=== PATIENT | female | born 1935 | race Caucasian/White ===

== ENCOUNTER 2022-12-15 08:42 | Inpatient (IN) | payer OTHER, MEDICAID ==
[~2022-12-15] VITALS: Ht 167.6 cm; Wt 64.9 kg
[2022-12-15] MEDS ORDERED: SODIUM CHLORIDE 0.9% 1,000 ML IV ONE ×2 (08:45→11:30)
[2022-12-15 09:44] LABS: Basophils # (auto) 0.1 10 ^3/uL (0-0.2); Basophils % (auto) 0.7 % (0.0-2.0); Eosinophils # (auto) 0 10 ^3/uL (0-0.8); Eosinophils % (auto) 0.2 % (0.0-7.0); Hematocrit 44.4 % (36.0-46.0); Hemoglobin 14.9 g/dL (12.2-16.2); Lymphocytes # (auto) 0.8 10 ^3/uL (0.4-5.4); Lymphocytes % (auto) 6.3 % (10.0-50.0); Mean Corpuscular Hemoglobin 27.9 pg (28.0-32.0); Mean Corpuscular Hgb Conc. 33.6 g/dL (32.0-36.0); Mean Corpuscular Volume 82.9 fL (80.0-100.0); Monocytes # (auto) 1.1 10 ^3/uL (0-1.3); Monocytes % (auto) 8.7 % (0.0-12.0); Neutrophils # (auto) 10.5 10 ^3/uL (1.6-8.6); Neutrophils % (auto) 84.1 % (37.0-80.0); Nucleated Red Blood Cells % 0.1 %; Red Blood Cells 5.35 10^6/uL (4.0-5.20); White Blood Cell 12.5 10^3/uL (4.4-10.8)
[2022-12-15 10:14] LABS: INR 1.03 (0.9-1.15); Partial Thromboplastin Time 27.7 SEC (24.5-34.5); Prothrombin Time 10.8 sec (9.3-11.8)
[2022-12-15] MEDS ORDERED: cefTRIAXone 1GM/50ML D5W 50 ML IV ONE (10:15)
[2022-12-15] MEDS ORDERED: LABETALOL HCL 5 MG/ML 4ML SYRINGE IV ONE (10:15)
[2022-12-15 10:20] VITALS: PULSE 93; RESP 22; O2SAT 93
[2022-12-15 10:23] LABS: Calcium 9.6 mg/dL (8.5-10.1); Potassium 4.1 mmol/L (3.5-5.1)
[2022-12-15] MEDS: SODIUM CHLORIDE 0.9% 1,000 ML IV ONE ×2 (10:26→10:42)
[2022-12-15 10:29] LABS: Albumin 4.3 g/dL (3.4-5.0); BUN/Creatinine Ratio 35.5 (10.0-20.0)
[2022-12-15] MEDS ORDERED: MORPHINE SULFATE INJ 2 MG/ml SYRG IV PRN (11:30)
[2022-12-15] MEDS ORDERED: NITROGLYCERIN 0.4 MG SL TAB SL PRN (11:30)
[2022-12-15] MEDS ORDERED: ASPirin 81 mg TAB PO ONE (11:30)
[2022-12-15] MEDS ORDERED: hydrALAZINE HCL 20 MG/ML VL IV ONE (12:00)
[2022-12-15] MEDS ORDERED: ONDANSETRON HCL 4 MG/2 ML VIAL IV PRN (14:45)
[2022-12-15] MEDS ORDERED: hydrALAZINE HCL 20 MG/ML VL IV PRN (15:30)
[2022-12-15] MEDS: hydrALAZINE HCL 20 MG/ML VL IV PRN (17:10)
[2022-12-15 18:24] LABS: Urine Bacteria NONE SEEN /hpf (None Seen); Urine Blood Negative /uL (Negative); Urine Clarity Clear (Clear); Urine Color Yellow (Yellow); Urine Hyaline Cast FEW /lpf (0 - 2); Urine Protein, UAD 2+ (Negative); Urine Specific Gravity 1.019 (1.001-1.035); Urine Urobilinogen Normal (Negative); Urine WBC 20 /hpf (0 - 5); Urine pH 5.5 (5.0-8.0)
[2022-12-15 19:28] VITALS: PULSE 96; RESP 24; O2SAT 96
[2022-12-16] MEDS: LORazepam 2MG/ML-1ML VIAL IV PRN ×3 (02:02→20:27)
[2022-12-16 06:58] LABS: INR 1.07 (0.9-1.15); Partial Thromboplastin Time 25.2 SEC (24.5-34.5); Prothrombin Time 11.2 sec (9.3-11.8)
[2022-12-16 07:03] LABS: BUN/Creatinine Ratio 40.5 (10.0-20.0); Calcium 8.8 mg/dL (8.5-10.1); Potassium 3.6 mmol/L (3.5-5.1)
[2022-12-16 07:08] LABS: Basophils # (auto) 0.1 10 ^3/uL (0-0.2); Basophils % (auto) 0.7 % (0.0-2.0); Eosinophils # (auto) 0.1 10 ^3/uL (0-0.8); Eosinophils % (auto) 0.5 % (0.0-7.0); Hematocrit 40.3 % (36.0-46.0); Hemoglobin 13.6 g/dL (12.2-16.2); Lymphocytes # (auto) 1.4 10 ^3/uL (0.4-5.4); Lymphocytes % (auto) 12.6 % (10.0-50.0); Mean Corpuscular Hemoglobin 29.4 pg (28.0-32.0); Mean Corpuscular Hgb Conc. 33.6 g/dL (32.0-36.0); Mean Corpuscular Volume 87.4 fL (80.0-100.0); Monocytes # (auto) 1.3 10 ^3/uL (0-1.3); Monocytes % (auto) 12.1 % (0.0-12.0); Neutrophils # (auto) 8.2 10 ^3/uL (1.6-8.6); Neutrophils % (auto) 74.1 % (37.0-80.0); Red Blood Cells 4.61 10^6/uL (4.0-5.20); Red Cell Distribution Width 16.1 % (11.8-14.3); White Blood Cell 11.1 10^3/uL (4.4-10.8)
[2022-12-16] MEDS: hydrALAZINE HCL 20 MG/ML VL IV PRN (08:13)
[2022-12-16] MEDS ORDERED: hydrALAZINE HCL 20 MG/ML VL IV PRN (09:00)
[2022-12-16 09:24] VITALS: PULSE 92; RESP 17; O2SAT 95
[2022-12-16] MEDS: cefTRIAXone 1GM/50ML D5W 50 ML IV SCH (09:29)
[2022-12-16] MEDS: ASPirin 81 mg TAB PO SCH (10:00)
[2022-12-16 19:30] VITALS: PULSE 89; RESP 23; O2SAT 94
[2022-12-17 05:20] LABS: Basophils # (auto) 0.1 10 ^3/uL (0-0.2); Basophils % (auto) 1.1 % (0.0-2.0); Eosinophils # (auto) 0.2 10 ^3/uL (0-0.8); Eosinophils % (auto) 2.6 % (0.0-7.0); Hematocrit 38.2 % (36.0-46.0); Hemoglobin 12.7 g/dL (12.2-16.2); Lymphocytes # (auto) 1.7 10 ^3/uL (0.4-5.4); Lymphocytes % (auto) 18.2 % (10.0-50.0); Mean Corpuscular Hemoglobin 28.5 pg (28.0-32.0); Mean Corpuscular Hgb Conc. 33.3 g/dL (32.0-36.0); Mean Corpuscular Volume 85.7 fL (80.0-100.0); Monocytes # (auto) 1.1 10 ^3/uL (0-1.3); Monocytes % (auto) 11.4 % (0.0-12.0); Neutrophils # (auto) 6.3 10 ^3/uL (1.6-8.6); Neutrophils % (auto) 66.7 % (37.0-80.0); Nucleated Red Blood Cells % 0.2 %; Red Blood Cells 4.46 10^6/uL (4.0-5.20); Red Cell Distribution Width 15.7 % (11.8-14.3); White Blood Cell 9.4 10^3/uL (4.4-10.8)
[2022-12-17] MEDS ORDERED: hydrALAZINE HCL 20 MG/ML VL IV ONE (06:30)
[2022-12-17 07:20] VITALS: PULSE 73; RESP 15; O2SAT 100
[2022-12-17 07:52] LABS: Potassium 3.4 mmol/L (3.5-5.1)
[2022-12-17 08:02] LABS: BUN/Creatinine Ratio 40.2 (10.0-20.0); Calcium 8.3 mg/dL (8.5-10.1)
[2022-12-17] MEDS: cefTRIAXone 1GM/50ML D5W 50 ML IV SCH (08:46)
[2022-12-17] MEDS: LORazepam 2MG/ML-1ML VIAL IV PRN (09:05)
[2022-12-17] MEDS: ASPirin 81 mg TAB PO SCH (09:58)
[2022-12-17] MEDS ORDERED: HALOPERIDOL LACTATE 5 MG/ML INJ VIAL IM PRN (13:00)
[2022-12-17] MEDS ORDERED: POTASSIUM EFFERVESENT TAB 25 MEQ PO ONE (15:45)
[2022-12-17 19:37] VITALS: O2SAT 94
[2022-12-17] MEDS: METOPROLOL TARTRATE 25 MG TAB PO SCH (22:59)
[2022-12-18] MEDS: hydrALAZINE HCL 20 MG/ML VL IV PRN ×2 (01:16→19:31)
[2022-12-18] MEDS: LORazepam 2MG/ML-1ML VIAL IV PRN (03:43)
[2022-12-18 05:20] LABS: BUN/Creatinine Ratio 42.9 (10.0-20.0); Calcium 8.6 mg/dL (8.5-10.1); Potassium 3.5 mmol/L (3.5-5.1)
[2022-12-18 07:25] VITALS: PULSE 84; RESP 14; O2SAT 95
[2022-12-18 07:29] LABS: Basophils # (auto) 0.1 10 ^3/uL (0-0.2); Eosinophils # (auto) 0.3 10 ^3/uL (0-0.8); Eosinophils % (auto) 2.4 % (0.0-7.0); Hematocrit 37.8 % (36.0-46.0); Hemoglobin 12.6 g/dL (12.2-16.2); Lymphocytes # (auto) 1.5 10 ^3/uL (0.4-5.4); Lymphocytes % (auto) 13.3 % (10.0-50.0); Mean Corpuscular Hemoglobin 28.2 pg (28.0-32.0); Mean Corpuscular Hgb Conc. 33.5 g/dL (32.0-36.0); Mean Corpuscular Volume 84.2 fL (80.0-100.0); Monocytes # (auto) 1.2 10 ^3/uL (0-1.3); Monocytes % (auto) 10.8 % (0.0-12.0); Neutrophils # (auto) 7.9 10 ^3/uL (1.6-8.6); Neutrophils % (auto) 72.5 % (37.0-80.0); Nucleated Red Blood Cells % 0.1 %; Red Blood Cells 4.49 10^6/uL (4.0-5.20); Red Cell Distribution Width 15.5 % (11.8-14.3); White Blood Cell 10.9 10^3/uL (4.4-10.8)
[2022-12-18] MEDS: ASPirin 81 mg TAB PO SCH (09:29)
[2022-12-18] MEDS: LISINOPRIL 10 MG TAB PO SCH (09:29)
[2022-12-18] MEDS: METOPROLOL TARTRATE 25 MG TAB PO SCH ×2 (09:30→22:07)
[2022-12-18] MEDS: cefTRIAXone 1GM/50ML D5W 50 ML IV SCH (09:50)
[2022-12-18 19:30] VITALS: PULSE 91; RESP 20; O2SAT 94
[2022-12-18] MEDS ORDERED: LORazepam 2MG/ML-1ML VIAL IV PRN (21:00)
[2022-12-18] MEDS ORDERED: ATORVASTATIN 20 MG TAB PO SCH (22:00)
[2022-12-18 22:36] LABS: Cholesterol 118 mg/dL (< 200); HDL Cholesterol 61 mg/dL (40-59); LDL Cholesterol 49 mg/dL (< 100); Triglycerides 71 mg/dL (< 150)
[2022-12-18 22:43] LABS: Folate (Folic Acid) 11.81 ng/mL (5.38-24)
[2022-12-19 04:54] LABS: Basophils # (auto) 0.1 10 ^3/uL (0-0.2); Basophils % (auto) 1.1 % (0.0-2.0); Eosinophils # (auto) 0.4 10 ^3/uL (0-0.8); Eosinophils % (auto) 3.6 % (0.0-7.0); Hematocrit 36.5 % (36.0-46.0); Hemoglobin 12.3 g/dL (12.2-16.2); Lymphocytes # (auto) 1.5 10 ^3/uL (0.4-5.4); Lymphocytes % (auto) 13.3 % (10.0-50.0); Mean Corpuscular Hemoglobin 28.1 pg (28.0-32.0); Mean Corpuscular Hgb Conc. 33.6 g/dL (32.0-36.0); Mean Corpuscular Volume 83.4 fL (80.0-100.0); Monocytes # (auto) 1.2 10 ^3/uL (0-1.3); Monocytes % (auto) 11.1 % (0.0-12.0); Neutrophils # (auto) 7.9 10 ^3/uL (1.6-8.6); Neutrophils % (auto) 70.9 % (37.0-80.0); Nucleated Red Blood Cells % 0.1 %; Red Blood Cells 4.38 10^6/uL (4.0-5.20); Red Cell Distribution Width 15.4 % (11.8-14.3); White Blood Cell 11.1 10^3/uL (4.4-10.8)
[2022-12-19 05:10] LABS: BUN/Creatinine Ratio 46.3 (10.0-20.0); Calcium 8.7 mg/dL (8.5-10.1); Potassium 3.8 mmol/L (3.5-5.1)
[2022-12-19] MEDS: hydrALAZINE HCL 20 MG/ML VL IV PRN (05:10)
[2022-12-19 08:30] VITALS: BP 180/62; PULSE 88; RESP 16; TEMP 97.6; O2SAT 93
[2022-12-19 09:00] VITALS: BP 180/62; PULSE 88; RESP 16; TEMP 97.6; O2SAT 93
[2022-12-19] MEDS: cefTRIAXone 1GM/50ML D5W 50 ML IV SCH (09:05)
[2022-12-19] MEDS: LISINOPRIL 10 MG TAB PO SCH (09:07)
[2022-12-19] MEDS: ASPirin 81 mg TAB PO SCH (09:08)
[2022-12-19] MEDS: METOPROLOL TARTRATE 25 MG TAB PO SCH (09:08)
[2022-12-19 13:00] VITALS: BP 128/47; PULSE 65; RESP 18; TEMP 96.8; O2SAT 90
[2022-12-19 17:00] VITALS: BP 133/51; PULSE 62; RESP 20; TEMP 98.1; O2SAT 93
[2022-12-19 20:00] VITALS: PULSE 56; PULSE 72; RESP 18
[2022-12-19] MEDS: ATORVASTATIN 20 MG TAB PO SCH (21:23)
[2022-12-19 22:00] VITALS: BP 155/50; PULSE 66; RESP 19; TEMP 98; O2SAT 90
[2022-12-20] VITALS (7 sets, daily range): BP systolic 112–170; BP diastolic 46–84; PULSE 66–84; RESP 16–20; TEMP 98.2–98.3; O2SAT 91–95
[2022-12-20 06:07] LABS: Basophils # (auto) 0.1 10 ^3/uL (0-0.2); Basophils % (auto) 0.5 % (0.0-2.0); Eosinophils # (auto) 0.4 10 ^3/uL (0-0.8); Eosinophils % (auto) 3.8 % (0.0-7.0); Hemoglobin 12.6 g/dL (12.2-16.2); Lymphocytes # (auto) 1.3 10 ^3/uL (0.4-5.4); Lymphocytes % (auto) 13.7 % (10.0-50.0); Mean Corpuscular Hemoglobin 27.7 pg (28.0-32.0); Mean Corpuscular Hgb Conc. 33.1 g/dL (32.0-36.0); Mean Corpuscular Volume 83.4 fL (80.0-100.0); Nucleated Red Blood Cells % 0.2 %; Red Blood Cells 4.56 10^6/uL (4.0-5.20); Red Cell Distribution Width 16.1 % (11.8-14.3); White Blood Cell 9.8 10^3/uL (4.4-10.8)
[2022-12-20 06:23] LABS: Potassium 3.8 mmol/L (3.5-5.1)
[2022-12-20 06:27] LABS: BUN/Creatinine Ratio 46.4 (10.0-20.0); Calcium 8.8 mg/dL (8.5-10.1)
[2022-12-20] MEDS: METOPROLOL SUCCINATE XL 50 MG TAB PO SCH (08:52)
[2022-12-20] MEDS: ASPirin 81 mg TAB PO SCH (08:52)
[2022-12-20] MEDS: LISINOPRIL 20 MG TAB PO SCH (08:53)
[2022-12-20] MEDS: cefTRIAXone 1GM/50ML D5W 50 ML IV SCH (08:53)
[2022-12-20] MEDS: ATORVASTATIN 20 MG TAB PO SCH (21:13)
[2022-12-20] MEDS: hydrALAZINE HCL 20 MG/ML VL IV PRN (22:12)
[2022-12-20] MEDS: LORazepam 2MG/ML-1ML VIAL IV PRN (23:31)
[2022-12-21] VITALS (8 sets, daily range): BP systolic 150–185; BP diastolic 66–85; PULSE 64–90; RESP 16–20; TEMP 97.5–98.4; O2SAT 91–93
[2022-12-21] MEDS: hydrALAZINE HCL 20 MG/ML VL IV PRN ×3 (05:12→22:11)
[2022-12-21] MEDS: cefTRIAXone 1GM/50ML D5W 50 ML IV SCH (08:28)
[2022-12-21] MEDS: ASPirin 81 mg TAB PO SCH (08:28)
[2022-12-21] MEDS: LISINOPRIL 20 MG TAB PO SCH (08:29)
[2022-12-21] MEDS: METOPROLOL SUCCINATE XL 50 MG TAB PO SCH (08:29)
[2022-12-21 09:49] LABS: Basophils # (auto) 0.1 10 ^3/uL (0-0.2); Basophils % (auto) 0.9 % (0.0-2.0); Eosinophils # (auto) 0.5 10 ^3/uL (0-0.8); Eosinophils % (auto) 4.9 % (0.0-7.0); Hematocrit 37.4 % (36.0-46.0); Hemoglobin 12.5 g/dL (12.2-16.2); Lymphocytes # (auto) 1.1 10 ^3/uL (0.4-5.4); Lymphocytes % (auto) 10.7 % (10.0-50.0); Mean Corpuscular Hgb Conc. 33.5 g/dL (32.0-36.0); Mean Corpuscular Volume 83.5 fL (80.0-100.0); Monocytes % (auto) 9.8 % (0.0-12.0); Neutrophils # (auto) 7.4 10 ^3/uL (1.6-8.6); Neutrophils % (auto) 73.7 % (37.0-80.0); Nucleated Red Blood Cells % 0.1 %; Red Blood Cells 4.48 10^6/uL (4.0-5.20); Red Cell Distribution Width 15.7 % (11.8-14.3)
[2022-12-21 10:07] LABS: BUN/Creatinine Ratio 40.2 (10.0-20.0); Calcium 8.6 mg/dL (8.5-10.1); Potassium 3.6 mmol/L (3.5-5.1)
[2022-12-21] MEDS: ATORVASTATIN 20 MG TAB PO SCH (22:07)
[2022-12-22 05:00] VITALS: BP 185/84; PULSE 68; RESP 17; TEMP 97.8; O2SAT 93
[2022-12-22] MEDS: hydrALAZINE HCL 20 MG/ML VL IV PRN (05:15)
[2022-12-22 05:46] LABS: Basophils # (auto) 0.1 10 ^3/uL (0-0.2); Basophils % (auto) 1.1 % (0.0-2.0); Eosinophils # (auto) 0.6 10 ^3/uL (0-0.8); Eosinophils % (auto) 6.1 % (0.0-7.0); Hematocrit 37.6 % (36.0-46.0); Hemoglobin 12.5 g/dL (12.2-16.2); Lymphocytes # (auto) 1.4 10 ^3/uL (0.4-5.4); Mean Corpuscular Hemoglobin 28.1 pg (28.0-32.0); Mean Corpuscular Hgb Conc. 33.2 g/dL (32.0-36.0); Mean Corpuscular Volume 84.5 fL (80.0-100.0); Monocytes # (auto) 0.9 10 ^3/uL (0-1.3); Monocytes % (auto) 9.7 % (0.0-12.0); Neutrophils # (auto) 6.8 10 ^3/uL (1.6-8.6); Neutrophils % (auto) 69.1 % (37.0-80.0); Nucleated Red Blood Cells % 0.1 %; Red Blood Cells 4.46 10^6/uL (4.0-5.20); Red Cell Distribution Width 15.7 % (11.8-14.3); White Blood Cell 9.8 10^3/uL (4.4-10.8)
[2022-12-22 06:03] LABS: Albumin 3.1 g/dL (3.4-5.0); Calcium 8.6 mg/dL (8.5-10.1); Potassium 3.8 mmol/L (3.5-5.1)
[2022-12-22 06:06] LABS: BUN/Creatinine Ratio 41.6 (10.0-20.0)
[2022-12-22 06:09] LABS: Bilirubin, Total 0.6 mg/dL (0.2-1.0); Total Protein 6.3 g/dL (6.4-8.2)
[2022-12-22 08:00] VITALS: PULSE 65
[2022-12-22] MEDS: cefTRIAXone 1GM/50ML D5W 50 ML IV SCH (08:44)
[2022-12-22] MEDS: LISINOPRIL 20 MG TAB PO SCH (08:45)
[2022-12-22] MEDS: ASPirin 81 mg TAB PO SCH (08:45)
[2022-12-22] MEDS: METOPROLOL SUCCINATE XL 50 MG TAB PO SCH (08:46)
[2022-12-22 09:00] VITALS: BP 161/77; PULSE 67; RESP 17; TEMP 97.7; O2SAT 91
[2022-12-22 13:00] VITALS: BP 166/60; PULSE 62; RESP 17; TEMP 97.7; O2SAT 92
[2022-12-22 16:44] VITALS: BP 137/45; PULSE 60; RESP 17; TEMP 97.9; O2SAT 92
[2022-12-22 20:10] VITALS: PULSE 61; PULSE 78; RESP 17
[2022-12-22] MEDS: LORazepam 2MG/ML-1ML VIAL IV PRN (20:39)
[2022-12-22] MEDS: ATORVASTATIN 20 MG TAB PO SCH (21:33)
[2022-12-23] VITALS (8 sets, daily range): BP systolic 105–166; BP diastolic 52–128; PULSE 64–78; RESP 14–20; TEMP 97.6–97.7; O2SAT 93–96
[2022-12-23] MEDS: LORazepam 2MG/ML-1ML VIAL IV PRN (02:39)
[2022-12-23] MEDS: hydrALAZINE HCL 20 MG/ML VL IV PRN (03:30)
[2022-12-23] MEDS ORDERED: DOCUSATE SOD 100 MG CAP PO PRN (06:15)
[2022-12-23 06:58] LABS: Calcium 8.8 mg/dL (8.5-10.1); Potassium 3.8 mmol/L (3.5-5.1)
[2022-12-23 07:00] LABS: BUN/Creatinine Ratio 35.4 (10.0-20.0)
[2022-12-23 08:25] LABS: Basophils # (auto) 0.1 10 ^3/uL (0-0.2); Basophils % (auto) 1.1 % (0.0-2.0); Eosinophils # (auto) 0.6 10 ^3/uL (0-0.8); Eosinophils % (auto) 6.1 % (0.0-7.0); Hematocrit 37.8 % (36.0-46.0); Hemoglobin 12.8 g/dL (12.2-16.2); Lymphocytes # (auto) 1.4 10 ^3/uL (0.4-5.4); Lymphocytes % (auto) 14.3 % (10.0-50.0); Mean Corpuscular Hemoglobin 28.4 pg (28.0-32.0); Mean Corpuscular Volume 83.8 fL (80.0-100.0); Monocytes # (auto) 1.1 10 ^3/uL (0-1.3); Monocytes % (auto) 10.9 % (0.0-12.0); Neutrophils # (auto) 6.8 10 ^3/uL (1.6-8.6); Neutrophils % (auto) 67.6 % (37.0-80.0); Nucleated Red Blood Cells % 0.1 %; Red Blood Cells 4.52 10^6/uL (4.0-5.20); Red Cell Distribution Width 15.7 % (11.8-14.3)
[2022-12-23] MEDS: METOPROLOL SUCCINATE XL 50 MG TAB PO SCH (10:00)
[2022-12-23] MEDS: NICOTINE 14 MG/24HR TOPICAL PATCH TD SCH (10:00)
[2022-12-23] MEDS: ASPirin 81 mg TAB PO SCH (10:00)
[2022-12-23] MEDS: LISINOPRIL 20 MG TAB PO SCH (10:00)
[2022-12-23] MEDS: cefTRIAXone 1GM/50ML D5W 50 ML IV SCH (11:11)
[2022-12-23] MEDS: ATORVASTATIN 20 MG TAB PO SCH (21:53)
[2022-12-24] MEDS: hydrALAZINE HCL 20 MG/ML VL IV PRN (04:38)
[2022-12-24 04:42] VITALS: BP 171/52; PULSE 74; RESP 17; TEMP 98.2; O2SAT 94
[2022-12-24 06:11] LABS: Basophils # (auto) 0.1 10 ^3/uL (0-0.2); Eosinophils # (auto) 0.5 10 ^3/uL (0-0.8); Eosinophils % (auto) 4.6 % (0.0-7.0); Hematocrit 34.7 % (36.0-46.0); Hemoglobin 11.7 g/dL (12.2-16.2); Lymphocytes # (auto) 1.5 10 ^3/uL (0.4-5.4); Lymphocytes % (auto) 13.8 % (10.0-50.0); Mean Corpuscular Hemoglobin 28.5 pg (28.0-32.0); Mean Corpuscular Hgb Conc. 33.9 g/dL (32.0-36.0); Mean Corpuscular Volume 84.1 fL (80.0-100.0); Monocytes # (auto) 1.2 10 ^3/uL (0-1.3); Monocytes % (auto) 10.8 % (0.0-12.0); Neutrophils # (auto) 7.4 10 ^3/uL (1.6-8.6); Neutrophils % (auto) 69.8 % (37.0-80.0); Red Blood Cells 4.12 10^6/uL (4.0-5.20); Red Cell Distribution Width 15.6 % (11.8-14.3); White Blood Cell 10.6 10^3/uL (4.4-10.8)
[2022-12-24 06:24] LABS: Potassium 4.1 mmol/L (3.5-5.1)
[2022-12-24 06:31] LABS: BUN/Creatinine Ratio 38.4 (10.0-20.0); Calcium 8.6 mg/dL (8.5-10.1)
[2022-12-24 08:00] VITALS: PULSE 77; RESP 17
[2022-12-24 09:00] VITALS: BP 147/47; PULSE 72; RESP 18; TEMP 98.4; O2SAT 91
[2022-12-24] MEDS: cefTRIAXone 1GM/50ML D5W 50 ML IV SCH (09:25)
[2022-12-24] MEDS: ASPirin 81 mg TAB PO SCH (10:21)
[2022-12-24] MEDS: LISINOPRIL 20 MG TAB PO SCH (10:21)
[2022-12-24] MEDS: METOPROLOL SUCCINATE XL 50 MG TAB PO SCH (10:22)
[2022-12-24] MEDS: NICOTINE 14 MG/24HR TOPICAL PATCH TD SCH (10:23)
[2022-12-24 13:00] VITALS: BP 145/61; PULSE 70; RESP 18; TEMP 98.1; O2SAT 93
[2022-12-24 20:00] VITALS: PULSE 57
[2022-12-24] MEDS: ATORVASTATIN 20 MG TAB PO SCH (21:59)
[2022-12-24] MEDS: DONEPEZIL HYDROCHLORIDE 5 MG TAB PO SCH (22:38)
[2022-12-25] VITALS (7 sets, daily range): BP systolic 126–190; BP diastolic 42–66; PULSE 54–67; RESP 18–20; TEMP 97.6–98.2; O2SAT 92–94
[2022-12-25] MEDS: hydrALAZINE HCL 20 MG/ML VL IV PRN (04:35)
[2022-12-25 06:20] LABS: Basophils # (auto) 0.1 10 ^3/uL (0-0.2); Basophils % (auto) 0.8 % (0.0-2.0); Eosinophils # (auto) 0.6 10 ^3/uL (0-0.8); Eosinophils % (auto) 6.7 % (0.0-7.0); Hematocrit 36.1 % (36.0-46.0); Hemoglobin 12.1 g/dL (12.2-16.2); Lymphocytes # (auto) 1.5 10 ^3/uL (0.4-5.4); Mean Corpuscular Hemoglobin 28.2 pg (28.0-32.0); Mean Corpuscular Hgb Conc. 33.6 g/dL (32.0-36.0); Mean Corpuscular Volume 83.9 fL (80.0-100.0); Monocytes # (auto) 0.9 10 ^3/uL (0-1.3); Monocytes % (auto) 8.8 % (0.0-12.0); Neutrophils # (auto) 6.7 10 ^3/uL (1.6-8.6); Neutrophils % (auto) 68.7 % (37.0-80.0); Red Cell Distribution Width 15.7 % (11.8-14.3); White Blood Cell 9.7 10^3/uL (4.4-10.8)
[2022-12-25 06:36] LABS: BUN/Creatinine Ratio 38.3 (10.0-20.0); Calcium 8.9 mg/dL (8.5-10.1); Potassium 4.3 mmol/L (3.5-5.1)
[2022-12-25] MEDS: cefTRIAXone 1GM/50ML D5W 50 ML IV SCH (09:27)
[2022-12-25] MEDS: ASPirin 81 mg TAB PO SCH (10:21)
[2022-12-25] MEDS: NICOTINE 14 MG/24HR TOPICAL PATCH TD SCH (10:21)
[2022-12-25] MEDS: LISINOPRIL 20 MG TAB PO SCH (10:22)
[2022-12-25] MEDS: METOPROLOL SUCCINATE XL 50 MG TAB PO SCH (10:23)
[2022-12-25] MEDS ORDERED: METO-6 PO (10:48)
[2022-12-25] MEDS ORDERED: LISI40TA16 PO (10:48)
[2022-12-25] MEDS ORDERED: ASPI-325 PO (10:48)
[2022-12-25] MEDS ORDERED: DONE5TAB80 PO (10:48)
[2022-12-25] MEDS ORDERED: ATOR20TA PO (10:48)
[2022-12-25] MEDS: DONEPEZIL HYDROCHLORIDE 5 MG TAB PO SCH ×3 (21:41→22:00)
[2022-12-25] MEDS: ATORVASTATIN 20 MG TAB PO SCH ×2 (21:41→21:46)
[2022-12-26] MEDS: hydrALAZINE HCL 20 MG/ML VL IV PRN (00:49)
[2022-12-26 04:59] VITALS: BP 150/60; PULSE 58; RESP 20; TEMP 98; O2SAT 94
[2022-12-26 06:05] LABS: Basophils # (auto) 0.1 10 ^3/uL (0-0.2); Basophils % (auto) 1.3 % (0.0-2.0); Eosinophils # (auto) 0.4 10 ^3/uL (0-0.8); Eosinophils % (auto) 5.2 % (0.0-7.0); Hematocrit 35.5 % (36.0-46.0); Lymphocytes # (auto) 1.2 10 ^3/uL (0.4-5.4); Lymphocytes % (auto) 16.6 % (10.0-50.0); Mean Corpuscular Hemoglobin 28.4 pg (28.0-32.0); Mean Corpuscular Hgb Conc. 33.8 g/dL (32.0-36.0); Monocytes % (auto) 13.4 % (0.0-12.0); Neutrophils # (auto) 4.7 10 ^3/uL (1.6-8.6); Neutrophils % (auto) 63.5 % (37.0-80.0); Red Blood Cells 4.22 10^6/uL (4.0-5.20); Red Cell Distribution Width 15.9 % (11.8-14.3); White Blood Cell 7.4 10^3/uL (4.4-10.8)
[2022-12-26 06:31] LABS: Potassium 4.2 mmol/L (3.5-5.1)
[2022-12-26 06:40] LABS: BUN/Creatinine Ratio 38.3 (10.0-20.0); Calcium 8.9 mg/dL (8.5-10.1)
[2022-12-26 08:00] VITALS: PULSE 61; PULSE 64
[2022-12-26 09:00] VITALS: BP 135/58; PULSE 68; RESP 19; TEMP 98; O2SAT 95
[2022-12-26] MEDS: cefTRIAXone 1GM/50ML D5W 50 ML IV SCH (09:27)
[2022-12-26] MEDS: NICOTINE 14 MG/24HR TOPICAL PATCH TD SCH (09:28)
[2022-12-26] MEDS: ASPirin 81 mg TAB PO SCH (09:29)
[2022-12-26] MEDS: METOPROLOL SUCCINATE XL 50 MG TAB PO SCH (09:29)
[2022-12-26] MEDS: LISINOPRIL 20 MG TAB PO SCH (09:30)
[2022-12-26 13:00] VITALS: BP 132/57; PULSE 64; RESP 18; TEMP 98.1; O2SAT 95
[2022-12-26 20:31] VITALS: BP 132/95; PULSE 64; RESP 18; TEMP 98.2; O2SAT 95
== END 2022-12-26 23:20 | disposition home health service (06) | DRG 280 ==
LOC: EDBD 08:42 → ER 08:42 → TELE 11:37 → TELE-WESTW 12-18 07:53
PROVIDERS: ADMIT Internal Medicine; ATTEND Student in an Organized Health Care Education/Training Program
DX: I16.1 Hypertensive emergency (principal); I21.A1 Myocardial infarction type 2; N17.0 Acute kidney failure with tubular necrosis; I67.4 Hypertensive encephalopathy; N39.0 Urinary tract infection, site not specified; E87.6 Hypokalemia; E86.0 Dehydration; I48.91 Unspecified atrial fibrillation; R56.9 Unspecified convulsions; G30.9 Alzheimer's disease, unspecified; F02.80 Dementia in other diseases classified elsewhere, unspecified severity, without behavioral disturbance, psychotic disturbance, mood disturbance, and anxiety; I10 Essential (primary) hypertension; I73.9 Peripheral vascular disease, unspecified; Z79.82 Long term (current) use of aspirin; Z79.899 Other long term (current) drug therapy; Z85.038 Personal history of other malignant neoplasm of large intestine; Z85.118 Personal history of other malignant neoplasm of bronchus and lung; Z90.710 Acquired absence of both cervix and uterus; Z95.820 Peripheral vascular angioplasty status with implants and grafts; Z86.73 Personal history of transient ischemic attack (TIA), and cerebral infarction without residual deficits
CPT/HCPCS: 36415; 70450; 70551; 71045; 80048; 80053; 80061; 81001; 82607; 82746; 82962; 83880; 84443; 84484; 85025; 85610; 85730; 87086; 87088; 87186; 93005; 93306; 95819; 96365; 96375; 97110; 97116; 97163; 97530; 99291; G0378; J0696; J2405; J3490